=== PATIENT | male | born 1970 | race Two or more races ===

== ENCOUNTER 2023-04-30 17:20 | Emergency (ER) | payer OTHER ==
[~2023-04-30] VITALS: Ht 170.2 cm; Wt 98.0 kg
[2023-04-30 18:33] LABS: COVID AG,FIA SOURCE NASAL SWAB
[2023-04-30 18:51] LABS: SARS-COV2 (COVID) ANTIGEN,FIA Negative (Negative)
[2023-04-30 18:54] LABS: INFLUENZA TYPE A NEGATIVE FOR TYPE A (NEGATIVE); INFLUENZA TYPE B NEGATIVE FOR TYPE B (NEGATIVE)
[2023-04-30 20:29] VITALS: BP 131/87; PULSE 73; RESP 15; TEMP 98.1
== END 2023-04-30 21:12 | disposition left against medical advice (07) ==
LOC: EMS 17:26
DX: J02.9 Acute pharyngitis, unspecified (principal); R05.9 Cough, unspecified; R52 Pain, unspecified; Z53.21 Procedure and treatment not carried out due to patient leaving prior to being seen by health care provider; Z20.822 Contact with and (suspected) exposure to COVID-19
CPT/HCPCS: 87430; 87804; 99281; Z7502